=== PATIENT | female | born 1970 | race Two or more races ===

== ENCOUNTER → 2024-05-30 | Outpatient (CLI) | payer MEDICAID ==
[2024-05-30 07:05] LABS: Urine Bacteria None Seen /hpf (None Seen)
[2024-05-30 07:17] LABS: Basophils # (auto) 0.1 10 ^3/uL (0-0.2); Basophils % (auto) 1.5 % (0.0-2.0); Eosinophils # (auto) 0.4 10 ^3/uL (0-0.8); Eosinophils % (auto) 6.2 % (0.0-7.0); Hematocrit 42.2 % (36.0-46.0); Hemoglobin 13.9 g/dL (12.2-16.2); Lymphocytes % (auto) 33.1 % (10.0-50.0); Mean Corpuscular Hgb Conc. 32.9 g/dL (32.0-36.0); Monocytes # (auto) 0.5 10 ^3/uL (0-1.3); Monocytes % (auto) 8.9 % (0.0-12.0); Neutrophils # (auto) 3.1 10 ^3/uL (1.6-8.6); Neutrophils % (auto) 50.3 % (37.0-80.0); Nucleated Red Blood Cells % 0.1 %; Platelet Count (auto) 261 10^3/uL (140-450); Red Blood Cells 5.15 10^6/uL (4.0-5.20); Red Cell Distribution Width 15.3 % (11.8-14.3); White Blood Cell 6.1 10^3/uL (4.4-10.8)
[2024-05-30 07:37] LABS: Urine Blood Negative /uL (Negative); Urine Clarity Ex.Turbid (Clear); Urine Color Colorless (Yellow); Urine Protein, UAD Negative (Negative); Urine Specific Gravity 1.014 (1.001-1.035); Urine Urobilinogen Normal (Negative); Urine WBC 2 /hpf (0 - 5)
[2024-05-30 07:45] LABS: Alanine Aminotransferase 11 U/L (7-40); Albumin 4.3 g/dL (3.2-4.8); Alkaline Phosphatase 120 U/L (46-116); Anion Gap 4 (5-15); Aspartate Aminotransferase 10 U/L (13-40); BUN/Creatinine Ratio 13.2 (10.0-20.0); Bilirubin, Total 0.3 mg/dL (0.2-1.0); Blood Urea Nitrogen 10 mg/dL (9-23); Calcium 9.8 mg/dL (8.7-10.4); Carbon Dioxide 31 mmol/L (20-31); Chloride 109 mmol/L (98-107); Cholesterol 232 mg/dL (< 200); Glucose 87 mg/dL (74-106); HDL Cholesterol 49 mg/dL (40-59); LDL Cholesterol 171 mg/dL (< 100); Potassium 4.8 mmol/L (3.5-5.1); Sodium 144 mmol/L (136-145); Total Protein 7.1 g/dL (5.7-8.2); Triglycerides 134 mg/dL (< 150)
== END | disposition home or self-care (01) ==
LOC: LAB 06:51
PROVIDERS: ATTEND Licensed Practical Nurse
DX: Z13.21 Encounter for screening for nutritional disorder (principal); E78.5 Hyperlipidemia, unspecified; K92.1 Melena
CPT/HCPCS: 36415; 80053; 80061; 81001; 82270; 82306; 82607; 83036; 84443; 85025

== ENCOUNTER 2024-06-10 09:26 | Inpatient (IN) | payer MEDICAID ==
[~2024-06-10] VITALS: Ht 170.2 cm; Wt 98.6 kg
[~2024-06-10 09:26] MED LIST: ACET-6 PO; ATOR10TA PO; ERGO500086 PO; GABA-1250 PO; MELO15TA29 PO; NICO21DI37 TD; TIZA-142 PO
[2024-06-10] MEDS: SODIUM CHLORIDE 0.9% 1,000 ML IV ONE (10:00)
--- NOTE | 2024-06-10 10:06 | ED.PDOC ---
HPI Comments 54-year-old female brought in by EMS presents with a chief complaint of chest pain x onset this morning. Patient reports that chest pain started as a burning sensation in the center of her chest that now radiated to her neck. Patient mentions that she now feels nausea and now reports center "pressure". En route, patient was given Nitro x2, Aspirin 324mg, and Zofran 4mg IV. Patient reports some relief after the medication. Chief Complaint: Chest Pain Time Seen by MD: 09:59 Primary Care Provider: JERAMY Costa Notes: Medications, Allergies Allergies: Coded Allergies: NO KNOWN ALLERGIES (Unverified , 06/10/24) Information Source: Patient Mode of Arrival: EMS Severity: Moderate Timing: Hours Duration: Since onset Prehospital treatment: ASA, NTG, Treatment (Zofran 4mg IV) Location: Substernal Radiation: Neck Quality: Pressure Onset: At Rest Cardiac Risk Factors: Smoker, Hyperlipidemia PE Risk Factors: None History of: None Past Medical History PAST MEDICAL HISTORY: High Lipids Surgical History: Denies all surgeries CONSTRUCTION QUALITY CONTROL MANAGER History: Denies all CONSTRUCTION QUALITY CONTROL MANAGER Hx Family History Family History: Reviewed,noncontributory to illness Social History Smoker: Cigarettes Alcohol: Rarely Drugs: Denies Drug Use Lives In: Home Constitutional: denies: chills, diaphoresis, fatigue, fever, malaise, sweats, weakness, others EENTM: denies: blurred vision, double vision, ear bleeding, ear discharge, ear drainage, ear pain, ear ringing, eye pain, eye redness, hearing loss, mouth pain, mouth swelling, nasal discharge, nose bleeding, nose congestion, nose pain, photophobia, tearing, throat pain, throat swelling, voice changes, others Respiratory: denies: cough, hemoptysis, orthopnea, SOB at rest, shortness of breath, SOB with excertion, stridor, wheezing, others Cardiovascular: reports: chest pain; denies: dizzy spells, diaphoresis, Dyspnea on exertion, edema, irregular heart beat, left arm pain, lightheadedness, palpitations, PND, syncope, others Gastrointestinal: denies: abdomen distended, abdominal pain, blood streaked bowels, constipated, diarrhea, dysphagia, difficulty swallowing, hematemesis, melena, nausea, poor appetite, poor fluid intake, rectal bleeding, rectal pain, vomiting, others Genitourinary: denies: abnormal vagina bleeding, burning, dyspareunia, dysuria, flank pain, frequency, hematuria, incontinence, pain, , vagina discharge, urgency, others Neurological: denies: dizziness, fainting, headache, left sided numbness, left sided weakness, numbness, paresthesia, pre-existing deficit, right sided numbness, right sided weakness, seizure, speech problems, tingling, tremors, weakness, others Musculoskeletal: denies: back pain, gout, joint pain, joint swelling, muscle pain, muscle stiffness, neck pain, others Integumetry: denies: bruises, change in color, change in hair/nails, dryness, laceration, lesions, lumps, rash, wounds, others Allergic/Immunocompromised: denies: Difficulty Healing, Frequent Infections, Hives, Itching, others Hematologic/Lymphatic: denies: anemia, blood clots, easy bleeding, easy bruising, swollen glands, others Endocrine: denies: excessive hunger, excessive sweating, excessive thirst, excessive urination, flushing, intolerance to cold, intolerance to heat, unexplained weight gain, unexplained weight loss, others Psychiatric: denies: anxiety, bipolar disorder, depression, hopeless, panic disorder, schizophrenia, sleepless, suicidal, others All Other Systems: Reviewed and Negative Physical Exam General Appearance: No Apparent Distress, Normal HEENT: Normal ENT Inspection, Pharynx Normal, TMs Normal Neck: Full Range of Motion, Non-Tender, Normal, Normal Inspection Respiratory: Chest Non-Tender, Lungs Clear, No Accessory Muscle Use, No Respiratory Distress, Normal Breath Sounds Cardiovascular: No Edema, No JVD, No Murmur, No Gallop, Normal Peripheral Pulses, Regular Rate/Rhythm Breast Exam: Deferred Gastrointestinal: No Organomegaly, Non Tender, No Pulsatile Mass, Normal Bowel Sounds, Soft Genitalia: Deferred Pelvic: Deferred Rectal: Deferred Extremities: No calf tenderness, Normal capillary refill, Normal inspection, Normal range of motion, Non-tender, No pedal edema Musculoskeletal : Apperance: Normal Neurologic: Alert, java web 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 Was a procedure done?: No CP Differential Dx Differential Diagnosis: Angina, Anxiety / Panic Attack, Electrolyte Disorder, Heart Failure, Pulmonary Embolus, Renal Failure Differential Diagnosis: CHF, HTN Essential Differential Diagnosis: Angina, Esophageal reflux/spasm, Myocardial Infarction, Pneumonia, Pulmonary Embolus X-Ray, Labs, Meds, VS Vital Signs Date Time Temp Pulse Resp B/P (MAP) Pulse Ox O2 Delivery O2 Flow Rate FiO2 06/10/24 11:18 72 06/10/24 10:58 57 06/10/24 10:50 61 06/10/24 09:26 98.7 72 16 137/82 (100) 98 06/10/24 09:26 72 Lab Test 06/10/24 10:33 06/10/24 09:31 Range/Units Troponin I High Sensitivity 72 *H 14 </=34 ng/L White Blood Count 5.5 4.4-10.8 10^3/uL Red Blood Count 4.76 4.0-5.20 10^6/uL Hemoglobin 12.9 12.2-16.2 g/dL Hematocrit 38.8 36.0-46.0 % Mean Corpuscular Volume 81.4 80.0-100.0 fL Mean Corpuscular Hemoglobin 27.0 L 28.0-32.0 pg Mean Corpuscular Hemoglobin Concent 33.2 32.0-36.0 g/dL Red Cell Distribution Width 14.8 H 11.8-14.3 % Platelet Count 264 140-450 10^3/uL Mean Platelet Volume 9.0 6.9-10.8 fL Neutrophils (%) (Auto) 49.1 37.0-80.0 % Lymphocytes (%) (Auto) 33.6 10.0-50.0 % Monocytes (%) (Auto) 9.8 0.0-12.0 % Eosinophils (%) (Auto) 6.0 0.0-7.0 % Basophils (%) (Auto) 1.5 0.0-2.0 % Neutrophils # (Auto) 2.7 1.6-8.6 10 ^3/uL Lymphocytes # (Auto) 1.8 0.4-5.4 10 ^3/uL Monocytes # (Auto) 0.5 0-1.3 10 ^3/uL Eosinophils # (Auto) 0.3 0-0.8 10 ^3/uL Basophils # (Auto) 0.1 0-0.2 10 ^3/uL Nucleated Red Blood Cells 0.0 % Prothrombin Time 10.8 9.3-11.8 sec Prothrombin Time INR 1.02 0.9-1.15 Activated Partial Thromboplast Time 29.3 24.5-34.5 SEC D-Dimer, Quantitative 0.28 0.0-0.49 mg/L FEU Sodium Level 141 136-145 mmol/L Potassium Level 4.3 3.5-5.1 mmol/L Chloride Level 107 98-107 mmol/L Carbon Dioxide Level 30 20-31 mmol/L Anion Gap 4 L 5-15 Blood Urea Nitrogen 12 9-23 mg/dL Creatinine 0.80 0.550-1.02 mg/dL Glomerular Filtration Rate Calc 86 >90 mL/min BUN/Creatinine Ratio 15.0 10.0-20.0 Serum Glucose 89 74-106 mg/dL Calcium Level 9.9 8.7-10.4 mg/dL Magnesium Level 2.1 1.6-2.6 mg/dL Total Bilirubin 0.4 0.2-1.0 mg/dL Aspartate Amino Transferase (AST) 12 L 13-40 U/L Alanine Aminotransferase (ALT) 15 7-40 U/L Alkaline Phosphatase 130 H 46-116 U/L Total Protein 6.8 5.7-8.2 g/dL Albumin 4.2 3.2-4.8 g/dL Current Medications Medications (Trade) Dose Ordered Sig/Morris Route Start Time Stop Time Status Last Admin Sodium Chloride 1,000 ml @ 150 mls/hr Q6H40M ONCE IV 06/10/24 10:00 06/10/24 16:39 06/10/24 10:00 X-Ray, Labs, Meds, VS Comment Course in the emergency department eventful patient came in complaining of chest pain burning sensation radiating to his neck and nausea heart rate 72 pulse ox 98 blood pressure 137/82 Patient received two nitroglycerin is aspirin Zofran on route The chest x-ray shows pulmonary vascular congestion EKG shows normal sinus rhythm at 72 with left left atrial enlargement Troponin 14 CBC negative CMP normal Magnesium 2.1 INR 1.02 D-dimer 0.28 Urine pending Patient will be admitted for further care Time of 1ST Reevaluation: 10:29 Reevaluation 1ST: Unchanged Time of 2ND Reevaluation: 11:15 Reevaluation 2ND: Unchanged Patient Education/Counseling: Diagnosis, Treatment, Prognosis Family Education/Counseling: Diagnosis, Treatment, Prognosis, No Family Present Departure 1 Departure Time of Disposition: 11:14 Impression: Primary Impression: Chest pain Qualified Codes: I20.0 - Unstable angina Additional Impression: Pulmonary vascular congestion Ruled Out: Pulmonary embolism Disposition: ADMITTED INPATIENT Admit to: Tele Condition: Serious Critical Care Note Critical Care Time?: No Stability Stability form required: Yes Unstable for transfer: Telemetry monitoring (Telemetry monitoring required), Requires medication (Requires Med for stabilization) Heart Score Heart Score: Heart Score Response (Comments) Value History Moderate Suspicious 1 EKG Repolarization Disturb 1 Age 45-64 1 Risk Factors 1 or 2 risk factors 1 Troponin Normal limit 0 Total 4 I personally scribed for SELIVN WARNER MD ([email or web address]) on 06/10/24 at 10:06. Electronically submitted by Sidney Ramon ([email or web address]). SELVIN WARNER MD Jun 10, 2024 10:06
[2024-06-10 10:35] LABS: Alanine Aminotransferase 15 U/L (7-40); Albumin 4.2 g/dL (3.2-4.8); Alkaline Phosphatase 130 U/L (46-116); Anion Gap 4 (5-15); Aspartate Aminotransferase 12 U/L (13-40); Basophils # (auto) 0.1 10 ^3/uL (0-0.2); Basophils % (auto) 1.5 % (0.0-2.0); Bilirubin, Total 0.4 mg/dL (0.2-1.0); Blood Urea Nitrogen 12 mg/dL (9-23); Calcium 9.9 mg/dL (8.7-10.4); Carbon Dioxide 30 mmol/L (20-31); Chloride 107 mmol/L (98-107); Eosinophils # (auto) 0.3 10 ^3/uL (0-0.8); Glucose 89 mg/dL (74-106); Hematocrit 38.8 % (36.0-46.0); Hemoglobin 12.9 g/dL (12.2-16.2); Lymphocytes # (auto) 1.8 10 ^3/uL (0.4-5.4); Lymphocytes % (auto) 33.6 % (10.0-50.0); Magnesium 2.1 mg/dL (1.6-2.6); Mean Corpuscular Hgb Conc. 33.2 g/dL (32.0-36.0); Mean Corpuscular Volume 81.4 fL (80.0-100.0); Monocytes # (auto) 0.5 10 ^3/uL (0-1.3); Monocytes % (auto) 9.8 % (0.0-12.0); Neutrophils # (auto) 2.7 10 ^3/uL (1.6-8.6); Neutrophils % (auto) 49.1 % (37.0-80.0); Platelet Count (auto) 264 10^3/uL (140-450); Potassium 4.3 mmol/L (3.5-5.1); Red Blood Cells 4.76 10^6/uL (4.0-5.20); Red Cell Distribution Width 14.8 % (11.8-14.3); Sodium 141 mmol/L (136-145); Total Protein 6.8 g/dL (5.7-8.2); White Blood Cell 5.5 10^3/uL (4.4-10.8)
[2024-06-10 10:48] LABS: INR 1.02 (0.9-1.15); Partial Thromboplastin Time 29.3 SEC (24.5-34.5); Prothrombin Time 10.8 sec (9.3-11.8)
--- NOTE | 2024-06-10 10:48 | DVH ---
XY CHEST TWO VIEWS ROUTINE, HISTORY: cp COMPARISON: None None TECHNICAL DATA: 2 view of the chest was obtained. FINDINGS: Lines and tubes: None Cardiomediastinal silhouette: normal Pulmonary vasculature: prominent Lung expansion: normal Lung airspace: normal Lung interstitium: normal Pleura: normal Pneumothorax: no Bones: Unremarkable Other: no IMPRESSION: Mild pulmonary congestion.
[2024-06-10] MEDS: ONDANSETRON HCL 4 MG/2 ML VIAL IV ONE (11:38)
[2024-06-10] MEDS: MORPHINE SULFATE 4 MG/ML SYR/VIAL IV ONE (11:38)
[2024-06-10] MEDS ORDERED: ONDANSETRON HCL 4 MG/2 ML VIAL IV PRN (11:45)
[2024-06-10] MEDS ORDERED: HYDROcodone-ACET 5/325MG TAB PO PRN (11:45)
[2024-06-10] MEDS ORDERED: MORPHINE SULFATE INJ 2 MG/ml SYRG IV PRN (11:45)
--- NOTE | 2024-06-10 12:10 | DVHINCON2 ---
Date Seen: Jun 10, 2024 Referring Physician AARON Quinn Reason for Consultation Chest pain History of Present Illness A 54-year-old female patient who presents to the emergency room with chief complaint of chest pain. The patient reports that the pain began approximately 20 minutes prior to emergency room arrival. She describes it as initially a burning sensation in her throat, followed by pressure in her chest. She reports that it was provoked by drinking her coffee, pressure-like in nature, and substernal without radiation. Associated symptoms include diaphoresis. She denies any alleviating factors. Per report, EMS gave sublingual nitroglycerin 0.4 mg x 2 and aspirin 324 mg x 1. The patient reports minimal relief after medications. Initial twelve lead electrocardiogram reveals sinus bradycardia with PAC. Initial troponin level of 14ng/L with peak level at 247ng/L. Significant past medical history includes dyslipidemia, tobacco use, and obesity. 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 Past Medical History Past medical history reviewed. No other significant than mentioned above. Past Surgical History Denies all previous surgeries Family History Family history reviewed. Social History Patient has a 15 pack-year history, states that she quit smoking approximately eight days ago Patient denies any illicit drug use Patient denies any alcohol use Allergies: Coded Allergies: NO KNOWN ALLERGIES (Unverified , 06/10/24) Home Meds Patient reports taking pyxr-nqg-efumaux medications such as fish oil and turmeric Current Medications Current Medications Medications (Trade) Dose Ordered Sig/Morris Route PRN Reason Start Time Stop Time Status Last Admin Acetaminophen/ Hydrocodone Bitart ([place] 5/325MG Tab) 1 tab Q4HP PRN PO MODERATE PAIN (4-6 PAIN SCALE) 06/10/24 11:45 Ondansetron HCl (Zofran) 4 mg Q4HP PRN IV NAUSEA / VOMITING 06/10/24 11:45 Nitroglycerin (Ntrostat Sublingual) 0.4 mg Q5MINP PRN SL FOR CHEST PAIN 06/10/24 11:45 Morphine Sulfate 2 mg Q30M PRN IV FOR CHEST PAIN 06/10/24 11:45 Review of Systems Constitutional: No symptom reported Ears, Nose, & Throat: No symptom reported Eyes: No symptom reported Neurological: No symptoms reported Pulmonary/Respiratory: No symptoms reported Cardiovascular: Chest pain Gastrointestinal: No symptom reported Genitourinary: No symptom reported Musculoskeletal: No symptom reported Skin: No symptom reported Psychiatric: No symptom reported Endocrine: No symptom reported Hematologic/Lymphatic: No symptom reported Vital Signs Vital Signs Date Time Temp Pulse Resp B/P (MAP) Pulse Ox O2 Delivery O2 Flow Rate FiO2 06/10/24 11:38 72 14 127/81 06/10/24 10:00 Room Air* 0 21 06/10/24 09:50 98.0 98 98.0 Physical Exam General Appearance: Cooperative. Obese Pulmonary/Respiratory: Clear, bilateral breaths sounds. Cardiovascular/Chest: Regular rate and rhythm. Peripheral Pulses: 2+ Radial (R). 2+ Radial (L). 2+ Pedal (R). 2+ Pedal (L) Abdominal Exam: Normal bowel sounds. Ankle Exam: Negative ankle edema Lower extremities: Negative lower extremity edema Neuro/Mental Status: A/OX4, coherent. Thoughts/Psych: Normal thought pattern. Appropriate mood and affect. Good judgment and insight. Appearance: No acute distress. Skin Exam: Normal inspection. Normal color. Warm and dry. Labs/Diagnostic Data Labs Test 06/10/24 10:33 06/10/24 09:31 Range/Units Troponin I High Sensitivity 72 *H </=34 ng/L White Blood Count 5.5 4.4-10.8 10^3/uL Red Blood Count 4.76 4.0-5.20 10^6/uL Hemoglobin 12.9 12.2-16.2 g/dL Hematocrit 38.8 36.0-46.0 % Mean Corpuscular Volume 81.4 80.0-100.0 fL Mean Corpuscular Hemoglobin 27.0 L 28.0-32.0 pg Mean Corpuscular Hemoglobin Concent 33.2 32.0-36.0 g/dL Red Cell Distribution Width 14.8 H 11.8-14.3 % Platelet Count 264 140-450 10^3/uL Mean Platelet Volume 9.0 6.9-10.8 fL Neutrophils (%) (Auto) 49.1 37.0-80.0 % Lymphocytes (%) (Auto) 33.6 10.0-50.0 % Monocytes (%) (Auto) 9.8 0.0-12.0 % Eosinophils (%) (Auto) 6.0 0.0-7.0 % Basophils (%) (Auto) 1.5 0.0-2.0 % Neutrophils # (Auto) 2.7 1.6-8.6 10 ^3/uL Lymphocytes # (Auto) 1.8 0.4-5.4 10 ^3/uL Monocytes # (Auto) 0.5 0-1.3 10 ^3/uL Eosinophils # (Auto) 0.3 0-0.8 10 ^3/uL Basophils # (Auto) 0.1 0-0.2 10 ^3/uL Nucleated Red Blood Cells 0.0 % Prothrombin Time 10.8 9.3-11.8 sec Prothrombin Time INR 1.02 0.9-1.15 Activated Partial Thromboplast Time 29.3 24.5-34.5 SEC D-Dimer, Quantitative 0.28 0.0-0.49 mg/L FEU Sodium Level 141 136-145 mmol/L Potassium Level 4.3 3.5-5.1 mmol/L Chloride Level 107 98-107 mmol/L Carbon Dioxide Level 30 20-31 mmol/L Anion Gap 4 L 5-15 Blood Urea Nitrogen 12 9-23 mg/dL Creatinine 0.80 0.550-1.02 mg/dL Glomerular Filtration Rate Calc 86 >90 mL/min BUN/Creatinine Ratio 15.0 10.0-20.0 Serum Glucose 89 74-106 mg/dL Calcium Level 9.9 8.7-10.4 mg/dL Magnesium Level 2.1 1.6-2.6 mg/dL Total Bilirubin 0.4 0.2-1.0 mg/dL Aspartate Amino Transferase (AST) 12 L 13-40 U/L Alanine Aminotransferase (ALT) 15 7-40 U/L Alkaline Phosphatase 130 H 46-116 U/L Total Protein 6.8 5.7-8.2 g/dL Albumin 4.2 3.2-4.8 g/dL Assessment NSTEMI, rule out coronary artery disease Dyslipidemia Tobacco use Obesity Plan/Recommendation We will continue with following plan/recommendations (Dr. Crowell): * Echocardiogram reveals EF 55% * Chest pain protocol * HEART score: 4 points * ABRAHAM score: 2 points * Lipid-lowering agent * Cardiac surveillance * [facility] 06/11/24 Patient seen and examined at bedside with . Given the patient's clinical presentation, HEART score and up trending troponin level, the patient may benefit from a coronary angiogram with left heart catheterization. The procedure was discussed with the patient in full detail including risks and benefits. Risks include but are not limited to bleeding, contrast induced nephropathy, stroke, and even . The patient understands and is agreeable to undergo the procedure. We will schedule the patient at first availability on 06/11/2024. Thank you for allowing us to care for this patient. Please call with any questions or concerns. Critical care time spent: 48 minutes This medical document was created using an electronic medical record system with voice recognition software and computerized dictation system. Although this document has been carefully reviewed, there might still be some phonetic and typographical errors. Occasional wrong-word or ``sound-alike substitutions may have occurred due to the inherent limitations of voice recognition software. These areas are purely typographical due to imperfections of the software programs and do not reflect any compromise in the patient's medical care. Please read the chart carefully and recognize, using context, where these substitutions have occurred. Plan discussed with: Patient Date of Service: Jun 10, 2024 Billing Provider: TRUNG CROWELL MD Cardiology Common Codes: [id number] INP/OBS CARE (High) MARILOU DEVINE VISUAL ARTS TEACHER Jun 10, 2024 12:10
--- NOTE | 2024-06-10 12:18 | DVHHP2 ---
History of Present Illness Reason for Visit: Chest pain History of Present Illness 54-year-old female brought in by EMS presented with chief complaint of chest pain onset was this morning. Patient reports the chest pain started as a burning sensation in the center of her chest that radiated to her neck. Patient states once she got to the hospital then she started feeling nauseous and reported pressure in the center of her chest. Patient was given nitro x2, aspirin, Zofran IV and patient did report relief after the medication. At time of this assessment patient states she feels a little bit of pressure in the middle of her chest. Patient does report that she has hyperlipidemia and does not take prescribed medications for it, patient uses supplements instead. Patient denies headache, dizziness, diaphoresis, shortness of breath, abdominal pain, no vomiting, fever, or chills endorsed by the patient. Patient was admitted for further evaluation medical management. Past Medical History Hyperlipidemia Past Surgical History Denies all surgeries Family History Reviewed noncontributory to the management of this case Smoke: <1 pack per day (Patient quit 8 days ago, was smoking half a pack per day) ALCOHOL: rare Lives: with Family Review of Systems Constitutional: No: Fever, Chills, Sweats, Weakness, Malaise, Other Eyes: No: Pain, Vision change, Conjunctivae inflammation, Eyelid inflammation, Other, Redness ENT: No: Ear pain, Ear discharge, Nose pain, Nose discharge, Nose congestion, Mouth pain, Mouth swelling, Throat pain, Throat swelling, Other Respiratory: No: Cough, Dry, Shortness of breath, SOB with excertion, Wheezing, Hemoptysis, Pleuritic Pain, Sputum, Wheezing, Other Cardiovascular: Chest Pain (Slight pressure reported by patient, 2/10) Gastrointestinal: Nausea (Nausea and relieved by Zofran) Genitourinary: No Dysuria, No Frequency, No Incontinence, No Hematuria, No Retention, No Other Musculoskeletal: No: other, neck pain, shoulder pain, arm pain, back pain, hand pain, leg pain, foot pain Skin: No: Rash, Lesions, Jaundice, Bruising, Other Neurological: No: Weakness, Numbness, Incoordination, Change in speech, Confusion, Seizures, Other Allergies: Coded Allergies: NO KNOWN ALLERGIES (Unverified , 06/10/24) Medications Current Medications Medications Dose Ordered Sig/Morris Route Start Time Stop Time Status Last Admin Dose Admin Acetaminophen/ Hydrocodone Bitart 1 tab Q4HP PRN PO 06/10/24 11:45 Ondansetron HCl 4 mg Q4HP PRN IV 06/10/24 11:45 Nitroglycerin 0.4 mg Q5MINP PRN SL 06/10/24 11:45 Morphine Sulfate 2 mg Q30M PRN IV 06/10/24 11:45 Exam Vital Signs Vital Signs Date Time Temp Pulse Resp B/P (MAP) Pulse Ox O2 Delivery O2 Flow Rate FiO2 06/10/24 11:38 72 14 127/81 06/10/24 10:00 Room Air* 0 21 06/10/24 09:50 98.0 98 98.0 General Appearance: Alert, Oriented X3, Cooperative, No acute distress HEENT: Atraumatic, PERRLA, EOMI, Mucous membr. moist/pink Respiratory: Clear to auscultation, Normal air movement Cardiovascular: Regular rate, Normal S1, Normal S2, No murmurs Abdominal: Normal bowel sounds, Soft, No tenderness, No hepatospenomegaly, No masses Extremities: No clubbing, No cyanosis, No edema, Normal pulses, No tenderness/swelling Skin: No rashes, No breakdown, No significant lesion Neuro: Normal gait, Normal speech, Strength at 5/5 X4 ext, Normal tone, Sensation intact, Cranial nerves 3-12 NL Psych/Mental Status: Mental status NL, Mood NL Labs/Xrays Labs, imaging and ED notes reviewed Labs Test 06/10/24 10:33 06/10/24 09:31 Range/Units Troponin I High Sensitivity 72 *H </=34 ng/L White Blood Count 5.5 4.4-10.8 10^3/uL Red Blood Count 4.76 4.0-5.20 10^6/uL Hemoglobin 12.9 12.2-16.2 g/dL Hematocrit 38.8 36.0-46.0 % Mean Corpuscular Volume 81.4 80.0-100.0 fL Mean Corpuscular Hemoglobin 27.0 L 28.0-32.0 pg Mean Corpuscular Hemoglobin Concent 33.2 32.0-36.0 g/dL Red Cell Distribution Width 14.8 H 11.8-14.3 % Platelet Count 264 140-450 10^3/uL Mean Platelet Volume 9.0 6.9-10.8 fL Neutrophils (%) (Auto) 49.1 37.0-80.0 % Lymphocytes (%) (Auto) 33.6 10.0-50.0 % Monocytes (%) (Auto) 9.8 0.0-12.0 % Eosinophils (%) (Auto) 6.0 0.0-7.0 % Basophils (%) (Auto) 1.5 0.0-2.0 % Neutrophils # (Auto) 2.7 1.6-8.6 10 ^3/uL Lymphocytes # (Auto) 1.8 0.4-5.4 10 ^3/uL Monocytes # (Auto) 0.5 0-1.3 10 ^3/uL Eosinophils # (Auto) 0.3 0-0.8 10 ^3/uL Basophils # (Auto) 0.1 0-0.2 10 ^3/uL Nucleated Red Blood Cells 0.0 % Prothrombin Time 10.8 9.3-11.8 sec Prothrombin Time INR 1.02 0.9-1.15 Activated Partial Thromboplast Time 29.3 24.5-34.5 SEC D-Dimer, Quantitative 0.28 0.0-0.49 mg/L FEU Sodium Level 141 136-145 mmol/L Potassium Level 4.3 3.5-5.1 mmol/L Chloride Level 107 98-107 mmol/L Carbon Dioxide Level 30 20-31 mmol/L Anion Gap 4 L 5-15 Blood Urea Nitrogen 12 9-23 mg/dL Creatinine 0.80 0.550-1.02 mg/dL Glomerular Filtration Rate Calc 86 >90 mL/min BUN/Creatinine Ratio 15.0 10.0-20.0 Serum Glucose 89 74-106 mg/dL Calcium Level 9.9 8.7-10.4 mg/dL Magnesium Level 2.1 1.6-2.6 mg/dL Total Bilirubin 0.4 0.2-1.0 mg/dL Aspartate Amino Transferase (AST) 12 L 13-40 U/L Alanine Aminotransferase (ALT) 15 7-40 U/L Alkaline Phosphatase 130 H 46-116 U/L Total Protein 6.8 5.7-8.2 g/dL Albumin 4.2 3.2-4.8 g/dL Assessment/Plan Assessment/Plan Chest pain/NSTEMI Admit to telemetry EKG showing sinus rhythm/sinus len ACS protocol Consult cardiology BNP ordered Chest x-ray shows mild pulmonary congestion Serial troponins: 14, 72, 3rd troponin pending Chronic hyperlipidemia Patient had recent hyperlipidemia workup Patient was prescribed atorvastatin, however patient declined to take medication Nicotine dependence Patient states she quit 8 days ago Patient declined nicotine patch FEN/PPX Cardiac diet GI and VTE prophylaxis not indicated Plan discussed with: Patient My Orders Orders - MIKEY URIARTE Procedure Category Date Status Time * Cardiology Consult CONS 06/10/24 Transmitted 11:24 Admit ADMIT 06/10/24 Transmitted 11:40 Code Status CODE 06/10/24 Transmitted 11:40 Vital Signs KIMMY 06/10/24 In Process 11:40 Review Orders With [facility] 06/10/24 In Process Adm. 11:40 Up Ad Thao KIMMY 06/10/24 In Process 11:40 Notify Md Of Changes [facility] 06/10/24 In Process From Base 11:40 Advance Directive [facility] 06/10/24 In Process 11:40 Basic Metabolic Panel LAB 06/11/24 Verified 04:00 Complete Blood Count LAB 06/11/24 Verified 04:00 Patient Condition ORDERS 06/10/24 Transmitted 11:40 Allergies KIMMY 06/10/24 In Process 11:40 Hydrocodone-Acet PHA 06/10/24 In Process 5/325mg Tab ([place] 11:45 Ondansetron Hcl PHA 06/10/24 In Process (Zofran) 11:45 Cardiac DIET 06/10/24 Transmitted Diet-2gna,Lofat,Lochol Lunch Nitroglycerin PHA 06/10/24 In Process Sublingual (Ntrostat 11:45 Morphine Sulfate PHA 06/10/24 In Process Injection 11:45 Stat Ekg For Chest [facility] 06/10/24 In Process Pain 11:40 Notify Md Of Changes [facility] 06/10/24 In Process From Base 11:40 Public Works Manager For [facility] 06/10/24 In Process 24 Hours 11:40 Emergency Dysrhythmia KIMMY 06/10/24 In Process Protocol 11:40 Rhythm Strips Once [facility] 06/10/24 In Process Every Shift 11:40 Oxygen By Nasal RT 06/10/24 Transmitted Cannula 11:40 B-Type Natriuretic LAB 06/10/24 In Process Peptide 11:59 Date of Service: Jun 10, 2024 Billing Provider: MIKEY URIARTE Common Visit Codes: [id number] INP/OBS CARE (HIGH) MIKEY URIARTE [facility] Jun 10, 2024 12:18
[2024-06-10 12:37] LABS: Triglycerides 112 mg/dL (< 150)
[2024-06-10 12:38] LABS: LDL Cholesterol 197 mg/dL (< 100)
[2024-06-10 12:39] LABS: Cholesterol 258 mg/dL (< 200); HDL Cholesterol 46 mg/dL (40-59)
--- NOTE | 2024-06-10 16:52 | DVHSR ---
APPROVED REPORT EXAM: Two-dimensional and M-mode echocardiogram with Doppler and color Doppler. Blood Pressure: 136/79 mmHg INDICATION Eval for cardiac function RISK FACTORS Height: 70, Weight: 200 DIMENSIONS LVDd (3.8-5.7cm)LA (2D)3.5 (1.9-4.0cm)Aortic Root2.9 (2.0-3.7cm) LVDs (2.5-4.0cm)LA (MM) (1.9-4.0cm)Aortic Cusp Exc1.8 (1.5-2.0cm) EF (%) 60.0 (55-70%)Rt. Atrium3.7 (1.9-4.0cm)Asc. Aorta cm Mitral Valve MitralMitral Stenosis E wave0.82m/sMV Mean GR.mmHg A wave0.81m/sMV Peak GR.79mmHg E/A ratio1.02D MVAcm2 DECEL [id number] 1/2 [id number] IVRTmsDop MVA2.66cm2 Aortic Valve Aortic ValveAortic Stenosis V10.93m/Alondra Mean GR.3mmHg V21.20m/Alondra Peak GR.6mmHg LVOT Diameter1.9 (1.8-2.4cm)Doppler AVA2.20cm2 Pulmonic Valve V20.82m/s Tricuspid Valve TR Velocity2.37m/s [id number] Other Information Technically limited study due to body habitus. Conclusion Normal left ventricular size and dimension. Normal left ventricular systolic function estimated ejec tion fraction 55%. There is a grade 1 diastolic dysfunction. Normal right ventricular size and dimension. Normal right ventricular systolic function. Normal biatrial size and dimension. Normal aortic valve structure and function. Normal mitral valve structure and function. Normal tricuspid valve structure and function. The pulmonary valve is grossly normal No pericardial effusion.
[2024-06-10 18:47] VITALS: BP 117/54; PULSE 58; RESP 16; TEMP 97.4; O2SAT 94
[2024-06-10] MEDS: NITROGLYCERIN 0.4 MG SL TAB SL PRN (19:07)
--- NOTE | 2024-06-10 19:13 | ECG ---
[facility] Test Date: 2024-06-10 Test Time: 09:26:15 Pat Name: RUFINA VALLE Department: ER Room: 0217T A Gender: F Manager Animation: ILIA : 1970 Requested By: SELVIN WARNER Order Number: [id number] Reading MD: Damaso Ponce Measurements Intervals [place] Rate: 72 P: 91 [place]: 154 QRS: 48 QRSD: 86 T: 37 QT: 392 QTc: 430 Interpretive Statements Sinus rhythm Probable left atrial enlargement RSR' in V1 or V2, right VCD or RVH Electronically Signed On 06-13-2024 11:15:59 PST by Damaso Ponce Please click the below link to view image of tracing.
--- NOTE | 2024-06-10 19:13 | ECG ---
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
[2024-06-10 20:00] VITALS: PULSE 69
[2024-06-10 21:00] VITALS: BP 105/64; PULSE 60; RESP 19; TEMP 97.6; O2SAT 91
[2024-06-10] MEDS: ATORVASTATIN 20 MG TAB PO SCH (21:05)
[2024-06-11] VITALS (12 sets, daily range): BP systolic 100–127; BP diastolic 54–85; PULSE 54–71; RESP 11–19; TEMP 97.5–98.1; O2SAT 96–100
[2024-06-11 07:21] LABS: Basophils # (auto) 0.1 10 ^3/uL (0-0.2); Eosinophils # (auto) 0.4 10 ^3/uL (0-0.8); Lymphocytes # (auto) 1.9 10 ^3/uL (0.4-5.4); Mean Corpuscular Volume 82.2 fL (80.0-100.0); Monocytes # (auto) 0.6 10 ^3/uL (0-1.3); Nucleated Red Blood Cells % 0.1 %; Platelet Count (auto) 249 10^3/uL (140-450); White Blood Cell 6.1 10^3/uL (4.4-10.8)
[2024-06-11 07:23] LABS: Basophils % (auto) 1.7 % (0.0-2.0); Eosinophils % (auto) 6.9 % (0.0-7.0); Hematocrit 37.6 % (36.0-46.0); Hemoglobin 12.3 g/dL (12.2-16.2); Lymphocytes % (auto) 31.6 % (10.0-50.0); Mean Corpuscular Hgb Conc. 32.8 g/dL (32.0-36.0); Monocytes % (auto) 9.9 % (0.0-12.0); Neutrophils % (auto) 49.9 % (37.0-80.0); Red Blood Cells 4.57 10^6/uL (4.0-5.20)
[2024-06-11 07:25] LABS: Calcium 9.4 mg/dL (8.7-10.4); Chloride 108 mmol/L (98-107); Potassium 4.6 mmol/L (3.5-5.1); Sodium 143 mmol/L (136-145)
[2024-06-11 07:26] LABS: Anion Gap 5 (5-15); Carbon Dioxide 30 mmol/L (20-31)
[2024-06-11 07:31] LABS: BUN/Creatinine Ratio 13.5 (10.0-20.0); Blood Urea Nitrogen 10 mg/dL (9-23); Glucose 79 mg/dL (74-106)
[2024-06-11] MEDS: IODIXANOL 320MG/ML 100ML BTL IV ONE ×2 (09:47→11:04)
[2024-06-11] MEDS: LIDOCAINE 2%HCL (LOCAL ANESTH.) INJ 20ML MDV ONE (09:50)
[2024-06-11] MEDS: VERAPAMIL 2.5MG/ML INJ 2ML VIAL IV ONE (10:02)
[2024-06-11] MEDS: NITROGLYCERIN 50MG/250ML 250 ML IV ONE (10:02)
[2024-06-11] MEDS: ANGIOMAX 250 MG VIAL IV ONE (10:26)
[2024-06-11] MEDS: fentaNYL CITRATE 100 MCG/2 ML VL ONE ×2 (10:27→11:04)
[2024-06-11] MEDS: MIDAZOLAM HCL 2MG/2ML 2ml VIAL (1mg/ml) ONE ×2 (10:27→11:04)
[2024-06-11] MEDS: HEPARIN SODIUM (PORCINE) 5000 UNITS/ML 1ML VIAL ONE (10:27)
[2024-06-11] MEDS: SODIUM CHL 0.9% 50 ML ONE (10:27)
[2024-06-11] MEDS: ATROPINE SULF 1 MG/10ml SYR ONE (11:04)
[2024-06-11] MEDS: ASPirin 325 MG TAB ONE (11:05)
--- NOTE | 2024-06-11 11:05 | DVHOP2 ---
Operative Report -Cardiology Report Details Date: 06/11/24 Preop Diagnosis: Non ST-elevation myocardial infarction. Postop Diagnosis: Patient has chronic valve new occluded right coronary artery there has good collateral from the left system. She has also a tight stenosis of the proximal to mid LAD which was fixed with a single drug-eluting stents. At fentanyl PTCA to the up INTELLIGENCE CLERK of right coronary artery has failed. We will recommend aggressive medical therapy for now Surgeon: Erin Colindres MD Anesthesiologist: Conscious sedation using 25 mcg of fentanyl as well as a mg of midazolam. Was given under the direct supervision of myself primary chief specialist leed. As well as the attending nurses. Patient has no complication during the procedure with the time she was monitored which is a total of 35 minutes. Anesthesia: Local Consent: The patient was informed of the risks and benefits of the procedure. These include but are not limited to complications of anesthesia, postoperative infection, incomplete relief of symptoms, recurrence of symptoms, damage to blood vessels, nerves and tendons, deep venous thrombosis, pulmonary embolism and possible need for repeat surgery in the future. Indications for Surgery: A 54-year-old female patient who presents to the emergency room with chief complaint of chest pain. The patient reports that the pain began approximately 20 minutes prior to emergency room arrival. She describes it as initially a burning sensation in her throat, followed by pressure in her chest. She reports that it was provoked by drinking her coffee, pressure-like in nature, and substernal without radiation. Associated symptoms include diaphoresis. She denies any alleviating factors. Per report, EMS gave sublingual nitroglycerin 0.4 mg x 2 and aspirin 324 mg x 1. The patient reports minimal relief after medications. Initial twelve lead electrocardiogram reveals sinus bradycardia with PAC. Initial troponin level of 14ng/L with peak level at 247ng/L. Significant past medical history includes dyslipidemia, tobacco use, and obesity. The patient denies any previous cardiac workup for following a chief specialist leed in the outpatient setting. Name of Procedure Performed 1. Left heart catheterization with left ventricular end-diastolic pressure measurement. 2. Selective right and left coronary angiography utilizing right transradial approach. 3. Conscious sedation using 25 mcg of fentanyl as well as a mg midazolam. 4. Primarily posterolateral to proximal LAD tight stenosis with single drug- eluting stent. 5. Attempted PTCA to chronic total occlusion of mid LAD has failed. A as right coronary artery is receiving good collateral from the left system. Procedure w as omitted Procedure Details Procedure Details: After informed consent was obtained, risks, benefits, complications, and alternatives were discussed in details with the patient who agrees to have the procedure done. At the beginning of the procedure, the right wrist and right coronary area were prepped and draped in regular sterile fashion. Followed which a total of 2 cc of 1% xylocaine was given for anesthesia before a six Bolivian sheath was placed using modified Seldinger technique without difficulty. A cocktail of 2.5 mg of verapamil as well as 100 mcg of nitroglycerin were given intra-arterial to prevent vasospasm at the beginning of the procedure. Patient also received a total of 3000 heparin once the wire crosses the aortic arch. Dawson five Bolivian catheter as well as a Ngozi right guiding catheter was used and finally an XB 3-0 guiding catheter was used to engage the left system respectively. Findings were as follows: 1. Left heart catheterization with left ventricular end-diastolic pressure measurement: With the help of a tiger five Bolivian catheter as well as a J-tip wire we were able to cross the aortic valve and measured left ventricular end-diastolic pressure which was twelve mm of mercury. There was no gradient across the aortic valve on the pullback. 2. Selective right and left coronary angiography utilizing right transradial approach: 1. The right coronary artery comes off the right coronary cusp, it is a large dominant system it has a tandem lesion at 60 70% of the proximal part of the right coronary vessel. However at the mid segment there is complete occlusion of the right coronary proper after the takeoff of large acute marginal branch. With the auto collateral from the left system in the distal part of the posterior descending artery and the posterolateral branch of the right coronary artery when injecting the left system. 2. Left main comes off the left coronary cusp, it is a large vessels and has no significant atherosclerotic plaquing. It bifurcates into a large left anterior descending artery as well as a medium-sized left circumflex vessel. 3. The left anterior descending artery it is large gives rise to two diagonal branches. Of the proximal to mid segment there is tight focal stenosis and 99%. The LAD has mild irregularity of the distal part it gives collateral to the right coronary system. 4. The left circumflex artery is medium-sized vessel gives rise to two obtuse marginal branches. Has mild moderate disease involving the bifurcating lesion at 40-50%. 3. Attempted PTCA to chronically occluded right coronary artery: The tiger five Bolivian catheter was exchanged for a Ngozi right guiding catheter with side hole, attempted PTCA using C-arm blue wire consult vest critical chronic occluded segment of the mid part of the right coronary artery for which the procedure was omitted. 4. Successful PTCA with single drug-eluting stent to the proximal to mid LAD focal stenosis and 90% using three 0 x 22 reba [place] drug-eluting stent: A Ngozi right guiding catheter was exchanged for an XB three 0 guiding catheter, this was able to engage the left main system without difficulty. C- arm blue wire is used to engage the lesion and was able to traverse through the lesion without difficulty., then the lesion was pre-dilated using 2 x 12 balloon and then stented using three 0 by 22 single drug-eluting stent it was reba [place] DESIRAE without difficulty. It was inflated to 18 atmospheric pressure with excellent final result no obvious complication was seen. 5. Antiplatelet and anticoagulation therapy: Patient received loading dose of the 100 mg of Plavix orally, she received continuous infusion of bivalirudin intravenously during the procedure. Impression and plan: 1. Successful PCI to focal stenosis of the proximal LAD using single drug- eluting stent. 2. Attempted PTCA to chronically occluded mid right coronary artery was failed. Due to good collateral from the left system the procedure was omitted. 3. Borderline elevated left ventricular end-diastolic pressure indicating underlying diastolic heart failure. For which we will recommend aggressive medical therapy. 4. Patient will qualify for dual antiplatelet therapy for minimum of 12 months, she would need aggressive medical therapy with a high-dose statin to achieve target LDL of less than 50 mg/dL. 5. Patient would need to have an echocardiogram to assess left ventricular systolic function and proceed with goal-directed therapy as indicated. 6. Patient would need appropriate follow-up with a chief specialist leed after she is discharged, she might need to be discharged on nitroglycerin antianginal therapy given chronically occluded right coronary artery. Condition Good [facility] Clinical Frailty Scale [facility] Clinical Frailty Scale: Mildly Frail Stress Test Stress Test Performed: No Dominance Dominance: Right ABRAHAM ABRAHAM Flow: Post- Intervention (ABRAHAM-3), Pre-Intervention (ABRAHAM-2) Lesion Lesion Complexity: High/C Residual Stenosis post procedu: 0% Disposition ERIN COLINDRES MD Jun 11, 2024 11:05
[2024-06-11] MEDS: CLOPIDOGREL BISULFATE 75 MG TAB ONE (11:06)
--- NOTE | 2024-06-11 13:18 | ECG ---
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
--- NOTE | 2024-06-11 15:11 | DVHPN2 ---
Subjective 54-year-old female smoker admitted for chest pain, received left heart catheterization, found to have chronically occluded RCA and proximal LAD stenosis status post PCI. Patient is seen by me today during rounds Patient was an ex-smoker, quit 1 week ago, have nicotine replacement therapy at home, 30 year smoker with half pack per day, denies alcohol, marijuana. 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 Reviewed: Care Plan, H&P, Labs, Medications, Previous Orders, Radiology Changes from previous H/P or p: No Changes Eyes: No Pain, No Vision change, No Conjunctivae inflammation, No Eyelid inflammation, No Other, No Redness ENT: No Ear pain, No Ear discharge, No Nose pain, No Nose discharge, No Nose congestion, No Mouth pain, No Mouth swelling, No Throat pain, No Throat swelling, No Other Cardiovascular: Chest Pain (Slight pressure reported by patient, 2/10) Respiratory: No Cough, No Dry, No Shortness of breath, No SOB with excertion, No Wheezing, No Hemoptysis, No Pleuritic Pain, No Sputum, No Other Gastrointestinal: Nausea (Nausea and relieved by Zofran) Genitourinary: No Dysuria, No Frequency, No Incontinence, No Hematuria, No Retention, No Other Musculoskeletal: No other, No neck pain, No shoulder pain, No arm pain, No back pain, No hand pain, No leg pain, No foot pain Skin: No Rash, No Lesions, No Jaundice, No Bruising, No Other Objective Vitals Vital Signs Date Time Temp Pulse Resp B/P (MAP) Pulse Ox O2 Delivery O2 Flow Rate FiO2 06/11/24 11:56 57 11 126/83 (97) 99 06/11/24 10:56 97.5 97.5 06/10/24 19:40 Room Air* 0 21 Intake/Output Intake and Output 06/11/24 07:00 Intake Total 100 ml Balance 100 ml Intake Oral 100 ml # Voids 1 Exam Alert, oriented x3 PERRLA No JVD Clear breath sounds bilaterally S1-S2 regular rate and rhythm, loud P2, soft systolic murmur Abdomen soft nontender, no hepatomegaly Equal strength bilaterally on upper and lower extremities Decreased ROM on right hip No lower extremity edema Medications Current Medications Medications Dose Ordered Sig/Morris Route Start Time Stop Time Status Last Admin Dose Admin Acetaminophen/ Hydrocodone Bitart 1 tab Q4HP PRN PO 06/10/24 11:45 Ondansetron HCl 4 mg Q4HP PRN IV 06/10/24 11:45 Nitroglycerin 0.4 mg Q5MINP PRN SL 06/10/24 11:45 06/10/24 19:07 0.4 MG Morphine Sulfate 2 mg Q30M PRN IV 06/10/24 11:45 Atorvastatin Calcium 40 mg HS PO 06/10/24 22:00 Aspirin 81 mg DAILY PO 06/12/24 10:00 Clopidogrel Bisulfate 75 mg DAILY PO 06/12/24 10:00 Laboratory Results Laboratory Tests 06/11/24 05:17 Chemistry Test 06/11/24 05:17 Calcium Level 9.4 mg/dL (8.7-10.4) Labs and/or images reviewed: Labs reviewed by me, Image(s) reviewed by me Assessment/Plan Assessment/Plan Acute NSTEMI Status post PCI on prox LAD Chronically occluded RCA not revascularized Smoker and recent liquid Slow transit constipation Insomnia Hyperlipidemia Sciatica Possible right hip osteoarthritis Cardiac consult appreciated Continue with aspirin and Plavix given education the patient will need to take that for 12 months echo with grade 1 diastolic dysfunction Offered nicotine replacement therapy, patient has said that she had at home and currently not needing it Start senna and MiraLax Melatonin to sleep High-intensity statin, patient likely will benefit for Zetia at some point Gabapentin 300 t.i.d. PT consult Diet heart healthy DVT prophylaxis Lovenox Plan discussed with: Patient Date of Service: Jun 11, 2024 Billing Provider: CATHLEEN LYNCH MD Common Visit Codes: [id number] INP/OBS CARE(HIGH) CATHLEEN LYNCH MD Jun 11, 2024 15:11
[2024-06-11] MEDS: SENNA 8.6 MG TAB PO ONE (15:59)
[2024-06-11] MEDS: POLYETHYLENE GLYCOL 17 GM PWDR PO ONE (15:59)
--- NOTE | 2024-06-11 16:31 | DVHPN2 ---
Consult Progress Note Subjective Patient reports: Feels better Objective vital signs Vital Sign Date Time Temp Pulse Resp B/P (MAP) Pulse Ox O2 Delivery O2 Flow Rate FiO2 06/11/24 11:56 57 11 126/83 (97) 99 06/11/24 10:56 97.5 97.5 06/10/24 19:40 Room Air* 0 21 Total Intake and Output 06/10/24 06/10/24 06/11/24 15:00 23:00 07:00 Intake Total 100 ml Balance 100 ml medications Current Medications Medications Dose Ordered Sig/Morris Route Start Time Stop Time Status Last Admin Dose Admin Nitroglycerin 0.4 mg Q5MINP PRN SL 06/10/24 11:45 06/10/24 19:07 0.4 MG Morphine Sulfate 2 mg Q30M PRN IV 06/10/24 11:45 Atorvastatin Calcium 40 mg HS PO 06/10/24 22:00 Aspirin 81 mg DAILY PO 06/12/24 10:00 Clopidogrel Bisulfate 75 mg DAILY PO 06/12/24 10:00 Melatonin 5 mg HS PO 06/11/24 22:00 Sennosides 17.2 mg HS PO 06/11/24 22:00 Polyethylene Glycol 17 gm DAILY PO 06/12/24 10:00 Examination: GENERAL:Normal, LUNGS:Normal, CVS:Normal, NEURO:Normal laboratory and microbiology Laboratory Tests 06/11/24 05:17 Test 06/11/24 05:17 Range/Units Serum Glucose 79 74-106 mg/dL Problem List/Assessment/Plan Problem List/Assessment/Plan Coronary artery disease status post PTCA x1 DESIRAE Dyslipidemia Tobacco use Obesity Plan/Recommendations (Dr. Crowell): Transthoracic echocardiogram reveals EF 55%. The patient underwent coronary angiogram with left heart catheterization in which a successful PCI to the proximal LAD using a single drug-eluting stent was placed. The patient is also noted to have a chronically occluded mid right coronary artery in which PCI failed. We will recommend for the patient to continue dual antiplatelet therapy, beta-екатерина, low-dose ERLINDA inhibitor, and aggressive statin therapy. Consider nitroglycerin or antianginal therapy for chronically occluded RCA prior to discharge. There is no further inpatient cardiac workup indicated at this time. The patient should follow up with Cardiology in the outpatient setting in 1-2 weeks post discharge. Thank you for allowing us to care for this patient. Please call with any questions or concerns. This medical document was created using an electronic medical record system with voice recognition software and computerized dictation system. Although this document has been carefully reviewed, there might still be some phonetic and typographical errors. Occasional wrong-word or ``sound-alike substitutions may have occurred due to the inherent limitations of voice recognition software. These areas are purely typographical due to imperfections of the software programs and do not reflect any compromise in the patient's medical care. Please read the chart carefully and recognize, using context, where these substitutions have occurred. Plan discussed with: Patient Date of Service: Jun 11, 2024 Billing Provider: TRUNG CROWELL MD Common Visit Codes: [id number] INP/OBS CARE(HIGH) MARILOU DEVINE [facility] Jun 11, 2024 16:31
[2024-06-11] MEDS: SENNA 8.6 MG TAB PO SCH (22:16)
[2024-06-11] MEDS: MELATONIN 5 MG TAB PO SCH (22:16)
[2024-06-12 01:00] VITALS: BP 104/54; PULSE 62; RESP 18; TEMP 98.1; O2SAT 99
[2024-06-12 05:00] VITALS: BP 107/55; PULSE 58; RESP 18; TEMP 98.1; O2SAT 97
[2024-06-12] MEDS: ONDANSETRON HCL 4 MG/2 ML VIAL IV PRN (06:34)
[2024-06-12] MEDS: HYDROcodone-ACET 5/325MG TAB PO ONE (06:35)
[2024-06-12 07:06] LABS: Basophils # (auto) 0.1 10 ^3/uL (0-0.2); Eosinophils # (auto) 0.4 10 ^3/uL (0-0.8); Lymphocytes # (auto) 1.9 10 ^3/uL (0.4-5.4); Monocytes # (auto) 0.7 10 ^3/uL (0-1.3)
[2024-06-12 07:09] LABS: Basophils % (auto) 1.1 % (0.0-2.0); Eosinophils % (auto) 4.9 % (0.0-7.0); Hematocrit 38.3 % (36.0-46.0); Hemoglobin 12.6 g/dL (12.2-16.2); Lymphocytes % (auto) 25.2 % (10.0-50.0); Mean Corpuscular Hemoglobin 26.9 pg (28.0-32.0); Mean Corpuscular Volume 81.7 fL (80.0-100.0); Monocytes % (auto) 9.7 % (0.0-12.0); Neutrophils # (auto) 4.4 10 ^3/uL (1.6-8.6); Neutrophils % (auto) 59.1 % (37.0-80.0); Platelet Count (auto) 263 10^3/uL (140-450); Red Blood Cells 4.69 10^6/uL (4.0-5.20); Red Cell Distribution Width 15.4 % (11.8-14.3); White Blood Cell 7.4 10^3/uL (4.4-10.8)
[2024-06-12 07:16] LABS: Calcium 9.4 mg/dL (8.7-10.4); Chloride 108 mmol/L (98-107); Potassium 4.6 mmol/L (3.5-5.1); Sodium 141 mmol/L (136-145)
[2024-06-12 07:17] LABS: Anion Gap 2 (5-15); Carbon Dioxide 31 mmol/L (20-31)
[2024-06-12 07:22] LABS: BUN/Creatinine Ratio 12.7 (10.0-20.0); Blood Urea Nitrogen 9 mg/dL (9-23); Glucose 87 mg/dL (74-106)
[2024-06-12 07:23] LABS: Magnesium 2.2 mg/dL (1.6-2.6)
[2024-06-12 07:24] LABS: Phosphorus 3.3 mg/dL (2.4-5.1)
[2024-06-12 08:00] VITALS: PULSE 61
[2024-06-12 09:29] VITALS: BP 114/55; PULSE 58; RESP 18; TEMP 98.3; O2SAT 98
[2024-06-12 09:29] LABS: Urine Bacteria None Seen /hpf (None Seen)
[2024-06-12 09:44] LABS: Urine Blood Negative /uL (Negative); Urine Clarity Clear (Clear); Urine Color Light-Yellow (Yellow); Urine Protein, UAD Negative (Negative); Urine Specific Gravity 1.016 (1.001-1.035); Urine Urobilinogen Normal (Negative); Urine WBC 1 /hpf (0 - 5); Urine pH 6.5 (5.0-9.0)
[2024-06-12] MEDS: ASPirin 81 mg TAB PO SCH (09:53)
[2024-06-12] MEDS: CLOPIDOGREL BISULFATE 75 MG TAB PO SCH (09:53)
[2024-06-12] MEDS: LISINOPRIL 5 MG TAB PO SCH (10:00)
[2024-06-12] MEDS: METOPROLOL SUCCINATE XL 50 MG TAB PO SCH (10:00)
[2024-06-12] MEDS: ISOSORBIDE MONONITRATE 20 MG TAB PO SCH (10:01)
[2024-06-12] MEDS: POLYETHYLENE GLYCOL 17 GM PWDR PO SCH (10:02)
[2024-06-12] MEDS: PANTOPRAZOLE 40 MG TAB PO ONE (10:05)
[2024-06-12 10:12] LABS: Amphetamine Screen, Urine Neg (NEGATIVE); Barbiturate Scree,Urine Neg (NEGATIVE); Benzodiazephine Screen, Urine Pos (NEGATIVE); Cocaine Screen, Urine Neg (NEGATIVE); Opiate Scree,Urine Neg (NEGATIVE)
[2024-06-12 10:13] LABS: Cannabinoid Screen, Urine Neg (NEGATIVE); Phencyclidine Screen, Urine Neg (NEGATIVE)
[2024-06-12] MEDS: LACTULOSE 20Gm/30ML SOLN PO ONE (12:38)
[2024-06-12 13:10] VITALS: BP 87/55; PULSE 58; RESP 16; TEMP 98.3; O2SAT 98
[2024-06-12] MEDS ORDERED: METO-6 PO ×2 (14:29→14:33)
[2024-06-12] MEDS ORDERED: LISI-275 PO ×2 (14:29→14:33)
[2024-06-12] MEDS ORDERED: ATOR20TA50 PO ×2 (14:29→14:33)
[2024-06-12] MEDS ORDERED: ALUMSUS16 PO ×2 (14:29→14:33)
[2024-06-12] MEDS ORDERED: PANT40T PO (14:29)
[2024-06-12] MEDS ORDERED: CLOP75TA70 PO ×2 (14:29→14:33)
[2024-06-12] MEDS ORDERED: MELA5TAB16 PO ×2 (14:29→14:33)
[2024-06-12] MEDS ORDERED: POLY335015 PO ×2 (14:29→14:33)
[2024-06-12] MEDS ORDERED: ISO20T PO ×2 (14:29→14:33)
[2024-06-12] MEDS ORDERED: ASPI-325 PO ×2 (14:29→14:33)
--- NOTE | 2024-06-12 14:38 | DVHDS2 ---
Discharge Summary Date of Admission Jun 10, 2024 at 11:40 Date of Discharge: Jun 12, 2024 Labs/Diagnostic Data: Laboratory Results Test 06/12/24 09:02 06/12/24 06:17 06/10/24 12:32 06/10/24 09:31 Urine Color Light-yellow (Yellow) Urine Clarity Clear (Clear) Urine pH 6.5 (5.0-9.0) Urine Specific [place] 1.016 (1.001-1.035) Urine Protein Negative (Negative) Urine Ketones Negative (Negative) Urine Blood Negative /uL (Negative) Urine Nitrite Negative (Negative) Urine Bilirubin Negative (Negative) Urine Urobilinogen Normal mg/dL (Negative) Urine Leukocyte Esterase Negative /uL (Negative) Urine RBC 1 /hpf (0 - 4) Urine WBC 1 /hpf (0 - 5) Urine Squamous Epithelial Cells Few /hpf (<5) Urine Bacteria None seen /hpf (None Seen) Urine Glucose Normal mg/dL (Normal) Urine Opiates Screen Neg (NEGATIVE) Urine Fentanyl Screen Neg (NEGATIVE) Urine Barbiturates Screen Neg (NEGATIVE) Urine Phencyclidine Screen Neg (NEGATIVE) Urine Amphetamines Screen Neg (NEGATIVE) Urine Benzodiazepines Screen Pos (NEGATIVE) Urine Cocaine Screen Neg (NEGATIVE) Urine Cannabinoids Screen Neg (NEGATIVE) White Blood Count 7.4 10^3/uL (4.4-10.8) Red Blood Count 4.69 10^6/uL (4.0-5.20) Hemoglobin 12.6 g/dL (12.2-16.2) Hematocrit 38.3 % (36.0-46.0) Mean Corpuscular Volume 81.7 fL (80.0-100.0) Mean Corpuscular Hemoglobin 26.9 pg (28.0-32.0) Mean Corpuscular Hemoglobin Concent 33.0 g/dL (32.0-36.0) Red Cell Distribution Width 15.4 % (11.8-14.3) Platelet Count 263 10^3/uL (140-450) Mean Platelet Volume 8.8 fL (6.9-10.8) Neutrophils (%) (Auto) 59.1 % (37.0-80.0) Lymphocytes (%) (Auto) 25.2 % (10.0-50.0) Monocytes (%) (Auto) 9.7 % (0.0-12.0) Eosinophils (%) (Auto) 4.9 % (0.0-7.0) Basophils (%) (Auto) 1.1 % (0.0-2.0) Neutrophils # (Auto) 4.4 10 ^3/uL (1.6-8.6) Lymphocytes # (Auto) 1.9 10 ^3/uL (0.4-5.4) Monocytes # (Auto) 0.7 10 ^3/uL (0-1.3) Eosinophils # (Auto) 0.4 10 ^3/uL (0-0.8) Basophils # (Auto) 0.1 10 ^3/uL (0-0.2) Nucleated Red Blood Cells 0.0 % Sodium Level 141 mmol/L (136-145) Potassium Level 4.6 mmol/L (3.5-5.1) Chloride Level 108 mmol/L (98-107) Carbon Dioxide Level 31 mmol/L (20-31) Anion Gap 2 (5-15) Blood Urea Nitrogen 9 mg/dL (9-23) Creatinine 0.71 mg/dL (0.550-1.02) Glomerular Filtration Rate Calc 100 mL/min (>90) BUN/Creatinine Ratio 12.7 (10.0-20.0) Serum Glucose 87 mg/dL (74-106) Calcium Level 9.4 mg/dL (8.7-10.4) Phosphorus Level 3.3 mg/dL (2.4-5.1) Magnesium Level 2.2 mg/dL (1.6-2.6) Troponin I High Sensitivity 247 ng/L (</=34) Prothrombin Time 10.8 sec (9.3-11.8) Prothrombin Time INR 1.02 (0.9-1.15) Activated Partial Thromboplast Time 29.3 SEC (24.5-34.5) D-Dimer, Quantitative 0.28 mg/L FEU (0.0-0.49) Total Bilirubin 0.4 mg/dL (0.2-1.0) Aspartate Amino Transferase (AST) 12 U/L (13-40) Alanine Aminotransferase (ALT) 15 U/L (7-40) Alkaline Phosphatase 130 U/L (46-116) B-Type Natriuretic Peptide 20.08 pg/mL (0-100) Total Protein 6.8 g/dL (5.7-8.2) Albumin 4.2 g/dL (3.2-4.8) Triglycerides Level 112 mg/dL (< 150) Cholesterol Level 258 mg/dL (< 200) LDL Cholesterol 197 mg/dL (< 100) HDL Cholesterol 46 mg/dL (40-59) Thyroid Stimulating Hormone (TSH) 1.70 uIU/mL (0.55-4.78) Other Laboratory Tests 06/12/24 06:17 Brief Hx & Hospital Course: 54-year-old female admitted for chest pain, status post left heart catheterization, found to have stenosis on prox LAD status post DESIRAE and chronic occlusion on mid RCA with no intervention. Patient is seen by Cardiology, echo done, normal ejection fraction, patient will be discharged on aspirin and Plavix, to take metoprolol, lisinopril and isosorbide mononitrate. Patient to follow up in 1 week with discharge Clinic, follow up with PCP and Cardiology. Patient occasionally have chest pain while inpatient, however patient different than last time before they did the PCI. Patient also reported usually having this in relation to food instead of exercise. Patient will also be given pantoprazole and Maalox. Condition at Discharge: Good Final Diagnosis/Problems List Patient has chronic valve new occluded right coronary artery there hasgood collateral from the left system. 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 Giorgi recommend aggressive medical therapy for now Discharge Disposition: Home Discharge Instruct/Medications Diet: Cardiac 2g Na,low cholest Diet comment: heart healthy Activity: No Restrictions, As Tolerated Follow Up/Referral: follow up with cardiology and primary care discharge clinic in 1 week Medications: asa 81 daily plavix 75 daily metop succinate 25 daily lisinopril 2.5 daily ismo 10 twice daily 45 Discharge Statement: "Patient was advised to return to the ER or call 911 if any headaches, dizziness, shortness of breath, chest pain, abdominal pain, bleeding, fevers, or worsening of medical condition. Patient was counseled about treatment plan, medications, possible side effects, patientverbalized understanding. All questions were answered to the best of my ability. This discharge took greater then 30 minutes in planning, reviewing documentation, counseling the patient, and discussing with other team members." ASSESSMENT ASSESSMENT Assessment Acute NSTEMI Status post PCI on prox LAD Chronically occluded RCA not revascularized Smoker and recent liquid Slow transit constipation Insomnia Hyperlipidemia Sciatica Possible right hip osteoarthritis Likely GERD Date of Service: Jun 12, 2024 Billing Provider: CATHLEEN LYNCH MD Common Visit Codes: [id number]-TFT/OBS DISCH DAY >30min CATHLEEN LYNCH MD Jun 12, 2024 14:38
[2024-06-12 16:54] VITALS: BP 92/61; PULSE 63; RESP 18; TEMP 98.4; O2SAT 97
[2024-06-13] MEDS ORDERED: PANTOPRAZOLE 40 MG TAB PO SCH (06:00)
== END 2024-06-12 17:49 | disposition home or self-care (01) | DRG 174 ==
LOC: ER 09:26 → EDBD 09:26 → TELE 11:40 → TELE-CENTR 18:47
PROVIDERS: ADMIT Registered Nurse General Practice; ATTEND Student in an Organized Health Care Education/Training Program
PROC: 027034Z Dilation of Coronary Artery, One Artery with Drug-eluting Intraluminal Device, Percutaneous Approach (ICD-10-PCS; principal; 2024-06-11)
PROC: 4A023N7 Measurement of Cardiac Sampling and Pressure, Left Heart, Percutaneous Approach (ICD-10-PCS; 2024-06-11)
PROC: B211YZZ Fluoroscopy of Multiple Coronary Arteries using Other Contrast (ICD-10-PCS; 2024-06-11)
DX: I21.4 Non-ST elevation (NSTEMI) myocardial infarction (principal); I50.32 Chronic diastolic (congestive) heart failure; E66.9 Obesity, unspecified; I25.10 Atherosclerotic heart disease of native coronary artery without angina pectoris; E78.5 Hyperlipidemia, unspecified; K59.01 Slow transit constipation; G47.00 Insomnia, unspecified; K21.9 Gastro-esophageal reflux disease without esophagitis; Z87.891 Personal history of nicotine dependence; Z68.34 Body mass index [BMI] 34.0-34.9, adult; Z79.899 Other long term (current) drug therapy
CPT/HCPCS: 36415; 71046; 80048; 80053; 80061; 80307; 81001; 83735; 83880; 84100; 84443; 84484; 85025; 85379; 85610; 85730; 92941; 93005; 93306; 93458; 97163; 99152; C1887; G0378; J2250; J2405; Q9967

== ENCOUNTER 2024-06-20 10:03 | Emergency (ER) | payer MEDICAID ==
[~2024-06-20] VITALS: Ht 167.6 cm; Wt 92.0 kg
[~2024-06-20 10:03] MED LIST changes: +ALUMSUS16 PO; +ASPI-325 PO; +ATOR20TA50 PO; +CLOP75TA70 PO; +ISO20T PO; +LISI-275 PO; +MELA5TAB16 PO; +METO-6 PO; +POLY335015 PO
[2024-06-20 10:06] VITALS: BP 96/64; RESP 16; O2SAT 98
--- NOTE | 2024-06-20 10:33 | ED.PDOC ---
HPI Comments HPI: Poor Historian. 54-year-old female presents to emergency department for evaluation of left-sided chest pain. She was seated this morning and she rotated to the right and she felt a pop in her left chest with some pain. Pain is nonradiating. Patient has some associated shortness of breath with it. Patient stated that she had a cardiac stent two weeks ago here in our facility and was concerned that something may have happened to the stent. Patient states compliance with her medications. She does have history of hypotension sometimes. VITALS; TEMP; 98F HEART RATE; 71 02 SAT; 98 RR; 16 BP; 96/64 PMH: hypertension, hld, Acute NSTEMI Status post PCI on prox LAD Chronically occluded RCA not revascularized Smoker and recent liquid Slow transit constipation Insomnia Hyperlipidemia Sciatica Possible right hip osteoarthritis Likely GERD PSH: single drug-eluting stent placed 2 weeks prior SOCIAL HISTORY: ENDORSES tobacco use, DENIES etoh use, DENIES drug use MEDS; asa 81 daily plavix 75 daily metop succinate 25 daily lisinopril 2.5 daily ALLERGIES; NKDA REVIEW OF SYSTEMS: CONSTITUTIONAL: Denies acute: fever, diaphoresis, chills, generalized weakness. HEAD: Denies acute: headache, photophobia Eyes: Denies acute: Double vision, vision loss, eye pain, eye discharge. EARS: Denies acute: tinnitus, hearing loss, ear discharge, ear pain, THROAT: Denies acute: sore throat, swelling, difficulty swallowing , pain with swallowin g, change in voice. NECK: Denies acute: neck pain, neck swelling, stiff neck. HEART: Denies acute : , palpitations, LUNGS: Denies acute: wheezing, cough, hemoptysis ABDOMEN: Denies acute: abdominal pain, Nausea, Vomiting, diarrhea, melena , hematemesis, hematochezia SKIN: Denies acute: rash, redness, lesions, itchiness. EXTREMITIES: Denies acute: calf pain, numbness, tingling, weakness, denies pain in extremity. Denies acute: Low back pain. Neuro: Denies acute: focal neurological deficit, motor or sensory focal neurological deficit, tremors, seizure like activity, confusion, dizziness, change in mental status, loss of bowel or bladder function, cauda equina like symptoms. : Denies acute: dysuria, hematuria, flank pain, increase in urinary frequency. PSYCH: Denies acute: hallucination, suicidal ideation, homicidal ideation. FEMALE: Denies acute: abnormal vaginal bleeding, foul odor, unusual discharge. PHYSICAL EXAM: General: no acute distress, awake and alert. Head: normocephalic, atraumatic. Neck: supple, trachea is midline, no swelling. Throat: Normal phonation. Eyes:, no erythema, no purulent discharge, no proptosis, no icterus. Heart: regular rate, regular rhythm, no significant murmur appreciated. Lungs: no apparent respiratory distress, Able to speak in full sentences. No wheezing, no rhonchi, no crackles. No stridors Clear to auscultation bilaterally. Abdomen: non tender to palpation, non distended, soft, no guarding, no rebound, + bowel sounds. Neuro: Awake, Alert, oriented to name, self, situation, follows commands GCS=15. Speech is normal. Skin: no petechia, no purpura, no cyanosis, non-pale, not jaundice. Lower extremities: --no - Pitting edema no deformity, no focal swelling, no calf TTP. Makes eye contact. moves all four extremities. Face: no apparent facial droop. Ambulating in the ED independently. Chief Complaint: Chest Pain Time Seen by MD: 10:40 Primary Care Provider: JERAMY Reviewed Notes: Nurses Notes, Allergies Allergies: Coded Allergies: NO KNOWN ALLERGIES (Unverified , 06/10/24) Home Meds Active Scripts Polyethylene Glycol 3350 (Miralax) 17 Gm Pow, 17 GM PO BIDP PRN for 30 Days, #30 POW Prov:CATHLEEN LYNCH MD 06/12/24 Alum & Mag Hydrox-Simethicone (Maalox Multi Symptom Maxi) Symp Max Marli, 1 MAX PO BIDPRN PRN for 30 Days, #30 ML Prov:CATHLEEN LYNCH MD 06/12/24 Melatonin (Melatonin) 5 Mg Tab, 5 MG PO HS for 30 Days, #30 TAB Prov:CATHLEEN LYNCH MD 06/12/24 Lisinopril (Lisinopril) 5 Mg Tab, 2.5 MG PO DAILY for 30 Days, #15 TAB Prov:CATHLEEN LYNCH MD 06/12/24 Isosorbide Mononitrate (ISMO TABLET) 20 Mg Tb, 10 MG PO BID for 30 Days, #30 TAB Prov:CATHLEEN LYNCH MD 06/12/24 Clopidogrel Bisulfate (CLOPIDOGREL) 75 Mg Tab, 75 MG PO DAILY for 30 Days, #30 TAB Prov:CATHLEEN LYNCH MD 06/12/24 Atorvastatin Calcium (ATORVASTATIN CALCIUM) 20 Mg Tab, 40 MG PO HS for 30 Days, #60 TAB Prov:CATHLEEN LYNCH MD 06/12/24 Aspirin (Aspirin Low Dose) 81 Mg Tab, 81 MG PO DAILY for 30 Days, #30 TAB Prov:CATHLEEN LYNCH MD 06/12/24 Metoprolol Succinate (Toprol Xl) 50 Mg Tab, 25 MG PO DAILY for 30 Days, #15 TAB Prov:CATHLEEN LYNCH MD 06/12/24 Reported Medications Gabapentin (Gabapentin) 300 Mg Cap, 1 CAP PO DAILY for 30 Days, #30 06/11/24 Acetaminophen (Acetaminophen Extra Stren) 500 Mg Tab, 1 TAB PO Q6HR PRN for 30 Days, #120 06/11/24 Ergocalciferol (Vitamin D (Ergocalciferol) 50,000 Unit Cap, 1 CAP PO QWEEKLY for 56 Days, #8 06/11/24 Atorvastatin Calcium (Lipitor) 10 Mg Tab, 1 TAB PO DAILY for 90 Days, #90 06/11/24 Nicotine (Nicotine Transdermal Syst) 21 Mg/24 Hr Dis, 1 PATCH TD DAILY for 28 Days, #28 06/11/24 Tizanidine Hydrochloride (Tizanidine Hcl) 4 Mg Tab, 1 TAB PO TID for 30 Days, #90 06/11/24 Meloxicam (Meloxicam) 15 Mg Tab, 1 TAB PO DAILY for 30 Days, #30 06/11/24 Information Source: Patient Mode of Arrival: Ambulatory Brought in by: SELF Past Medical History PAST MEDICAL HISTORY: High Lipids, HTN Surgical History: PTCA CLINICAL SUPPORT ASSOCIATE History: Denies all CLINICAL SUPPORT ASSOCIATE Hx Family History Family History: Reviewed,noncontributory to illness Social History Smoker: Cigarettes Alcohol: Denies ETOH Use Drugs: Denies Drug Use Lives In: Home Was a procedure done? Was a procedure done?: No CP Differential Dx Differential Diagnosis: N/A Differential Diagnosis: Other (Ddx include but not limitied to gastritis, musculoskeletal pain, radiculopathy, atypical chest pain, dissection, aneurysm, ACS, unstable angina, hiatal hernia, GERD, anxiety, costochondritis, PE, pneumothroax, neoplasm, cardiac ischemia, drug abuse, anemia.) X-Ray, Labs, Meds, VS Vital Signs Date Time Temp Pulse Resp B/P (MAP) Pulse Ox O2 Delivery O2 Flow Rate FiO2 06/20/24 11:33 73 06/20/24 10:07 69 06/20/24 10:06 98.0 71 16 96/64 (75) 98 Lab Test 06/20/24 11:44 06/20/24 10:14 Range/Units Troponin I High Sensitivity 4 4 </=34 ng/L White Blood Count 6.6 4.4-10.8 10^3/uL Red Blood Count 4.67 4.0-5.20 10^6/uL Hemoglobin 12.6 12.2-16.2 g/dL Hematocrit 38.4 36.0-46.0 % Mean Corpuscular Volume 82.4 80.0-100.0 fL Mean Corpuscular Hemoglobin 27.0 L 28.0-32.0 pg Mean Corpuscular Hemoglobin Concent 32.8 32.0-36.0 g/dL Red Cell Distribution Width 14.9 H 11.8-14.3 % Platelet Count 305 140-450 10^3/uL Mean Platelet Volume 8.4 6.9-10.8 fL Neutrophils (%) (Auto) 54.2 37.0-80.0 % Lymphocytes (%) (Auto) 30.7 10.0-50.0 % Monocytes (%) (Auto) 9.2 0.0-12.0 % Eosinophils (%) (Auto) 4.7 0.0-7.0 % Basophils (%) (Auto) 1.2 0.0-2.0 % Neutrophils # (Auto) 3.6 1.6-8.6 10 ^3/uL Lymphocytes # (Auto) 2.0 0.4-5.4 10 ^3/uL Monocytes # (Auto) 0.6 0-1.3 10 ^3/uL Eosinophils # (Auto) 0.3 0-0.8 10 ^3/uL Basophils # (Auto) 0.1 0-0.2 10 ^3/uL Nucleated Red Blood Cells 0.0 % D-Dimer, Quantitative 0.39 0.0-0.49 mg/L FEU Sodium Level 141 136-145 mmol/L Potassium Level 4.6 3.5-5.1 mmol/L Chloride Level 105 98-107 mmol/L Carbon Dioxide Level 30 20-31 mmol/L Anion Gap 6 5-15 Blood Urea Nitrogen 8 L 9-23 mg/dL Creatinine 0.80 0.550-1.02 mg/dL Glomerular Filtration Rate Calc 86 >90 mL/min BUN/Creatinine Ratio 10.0 10.0-20.0 Serum Glucose 83 74-106 mg/dL Calcium Level 9.9 8.7-10.4 mg/dL Total Bilirubin 0.5 0.2-1.0 mg/dL Aspartate Amino Transferase (AST) 8 L 13-40 U/L Alanine Aminotransferase (ALT) 10 7-40 U/L Alkaline Phosphatase 163 H 46-116 U/L Total Protein 7.4 5.7-8.2 g/dL Albumin 4.4 3.2-4.8 g/dL [place] [id number] Ph: [phone] DIAGNOSTIC IMAGING Diagnostic Imaging Report : [id number] Signed PATIENT: RUFINA VALLE ACCT: [id number] UNIT: [id number] : 1970 LOC: ER ROOM / BED: / AGE / SEX: 54 / F ADM STATUS: REG ER SERVICE 1005 ORDERING PHYSICIAN: ABELINO MATTHEW MD PROCEDURE(s): CXRP - CHEST PORTABLE REASON: cp ORDER NUMBER(s): [id number], ACCESSION NUMBER(s): [id number] CHEST RADIOGRAPH Indication:cp Technique: Single frontal view of the chest was obtained Comparison: None FINDINGS: Lines and Tubes: None Lungs: No focal consolidation. Pleura: No effusion. No pneumothorax. Cardiomediastinal contours: Unremarkable Bones: No acute osseous abnormality. IMPRESSION: No acute cardiopulmonary disease. ATED BY: JENNIFER CARRASCO MD DICTATED DATE/TIME: 06/20/24 1044 SIGNED BY: JENNIFER CARRASCO MD SIGNED DATE/TIME: 06/20/24 104 CC: Time of 1ST Reevaluation: 14:37 Reevaluation 1ST: N/A Patient Education/Counseling: Diagnosis, Treatment Family Education/Counseling: No Family Present Comments Patient presented with the above HPI.--chest pain---workup was initiated. patient was found with the above mentioned diagnosis. Patient ED course and VS have been stabilized. Patient has been reassessed in the ED and remained in a stable condition. Patient has been observed in the ED adequate length of time to insure improvement/stability. Patient left against medical advice. We paged Cardiology earlier but have not heard back from them yet Dr. Storm All the reports of any imaging studies that were ordered by myself were reviewed by myself. Departure 1 Departure Time of Disposition: 14:36 Impression: Primary Impression: Chest pain Additional Impression: Left against medical advice Disposition: 07 LEFT AGAINST MEDICAL ADVICE Condition: Guarded Additional Instructions: I was notified that the patient left against medical advice. Discharged With: Self Critical Care Note Critical Care Time?: No Heart Score Heart Score: Heart Score Response (Comments) Value History Slightly Suspicious 0 EKG Normal 0 Age 45-64 1 Risk Factors 1 or 2 risk factors 1 Troponin Normal limit 0 Total 2 I personally scribed for FAUSTO WALLACE DO ([email or web address]) on 06/20/24 at 10:33. Electronically submitted by Fernando Hamilton ([email or web address]). I personally scribed for FAUSTO WALLACE DO ([email or web address]) on 06/20/24 at 10:41. Electronically submitted by Fernando Hamilton (Mismi). I personally scribed for FAUSTO WALLACE DO ([email or web address]) on 06/20/24 at 10:56. Electronically submitted by Fernando Hamilton (Mismi). I personally scribed for FAUSTO WALLACE DO ([email or web address]) on 06/20/24 at 11:41. Electronically submitted by Fernando Hamilton (Mismi). FAUSTO WALLACE DO Jun 20, 2024 10:33
[2024-06-20 10:43] LABS: Basophils # (auto) 0.1 10 ^3/uL (0-0.2); Basophils % (auto) 1.2 % (0.0-2.0); Eosinophils # (auto) 0.3 10 ^3/uL (0-0.8); Eosinophils % (auto) 4.7 % (0.0-7.0); Hematocrit 38.4 % (36.0-46.0); Hemoglobin 12.6 g/dL (12.2-16.2); Lymphocytes % (auto) 30.7 % (10.0-50.0); Mean Corpuscular Hgb Conc. 32.8 g/dL (32.0-36.0); Mean Corpuscular Volume 82.4 fL (80.0-100.0); Monocytes # (auto) 0.6 10 ^3/uL (0-1.3); Monocytes % (auto) 9.2 % (0.0-12.0); Neutrophils # (auto) 3.6 10 ^3/uL (1.6-8.6); Neutrophils % (auto) 54.2 % (37.0-80.0); Platelet Count (auto) 305 10^3/uL (140-450); Red Blood Cells 4.67 10^6/uL (4.0-5.20); Red Cell Distribution Width 14.9 % (11.8-14.3); White Blood Cell 6.6 10^3/uL (4.4-10.8)
--- NOTE | 2024-06-20 10:46 | DVH ---
CHEST RADIOGRAPH Indication:cp Technique: Single frontal view of the chest was obtained Comparison: None FINDINGS: Lines and Tubes: None Lungs: No focal consolidation. Pleura: No effusion. No pneumothorax. Cardiomediastinal contours: Unremarkable Bones: No acute osseous abnormality. IMPRESSION: No acute cardiopulmonary disease.
[2024-06-20 10:57] LABS: Alanine Aminotransferase 10 U/L (7-40); Albumin 4.4 g/dL (3.2-4.8); Alkaline Phosphatase 163 U/L (46-116); Anion Gap 6 (5-15); Aspartate Aminotransferase 8 U/L (13-40); Bilirubin, Total 0.5 mg/dL (0.2-1.0); Blood Urea Nitrogen 8 mg/dL (9-23); Calcium 9.9 mg/dL (8.7-10.4); Carbon Dioxide 30 mmol/L (20-31); Chloride 105 mmol/L (98-107); Glucose 83 mg/dL (74-106); Potassium 4.6 mmol/L (3.5-5.1); Sodium 141 mmol/L (136-145); Total Protein 7.4 g/dL (5.7-8.2)
[2024-06-20 11:33] VITALS: PULSE 73
--- NOTE | 2024-06-20 19:05 | ECG ---
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
--- NOTE | 2024-06-21 06:27 | ECG ---
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
== END 2024-06-20 12:47 | disposition left against medical advice (07) ==
LOC: ER 10:03
DX: R07.89 Other chest pain (principal); E78.5 Hyperlipidemia, unspecified; F17.210 Nicotine dependence, cigarettes, uncomplicated; I11.9 Hypertensive heart disease without heart failure; I25.2 Old myocardial infarction; Z79.02 Long term (current) use of antithrombotics/antiplatelets; Z79.82 Long term (current) use of aspirin; Z79.899 Other long term (current) drug therapy; Z95.5 Presence of coronary angioplasty implant and graft
CPT/HCPCS: 36415; 71045; 80053; 84484; 85025; 85379; 93005

== ENCOUNTER → 2024-07-24 | Outpatient (CLI) | payer MEDICAID ==
[2024-07-24 09:31] LABS: Basophils # (auto) 0 10 ^3/uL (0-0.2); Basophils % (auto) 0.5 % (0.0-2.0); Eosinophils # (auto) 0.4 10 ^3/uL (0-0.8); Eosinophils % (auto) 6.8 % (0.0-7.0); Hematocrit 40.2 % (36.0-46.0); Hemoglobin 13.2 g/dL (12.2-16.2); Lymphocytes # (auto) 1.9 10 ^3/uL (0.4-5.4); Lymphocytes % (auto) 29.9 % (10.0-50.0); Monocytes # (auto) 0.6 10 ^3/uL (0-1.3); Neutrophils # (auto) 3.4 10 ^3/uL (1.6-8.6); Neutrophils % (auto) 52.8 % (37.0-80.0); Nucleated Red Blood Cells % 0.1 %; Platelet Count (auto) 304 10^3/uL (140-450); Red Blood Cells 4.89 10^6/uL (4.0-5.20); Red Cell Distribution Width 14.4 % (11.8-14.3); White Blood Cell 6.5 10^3/uL (4.4-10.8)
[2024-07-24 10:01] LABS: Alanine Aminotransferase 14 U/L (7-40); Albumin 4.4 g/dL (3.2-4.8); Anion Gap 4 (5-15); Aspartate Aminotransferase 14 U/L (13-40); BUN/Creatinine Ratio 14.7 (10.0-20.0); Blood Urea Nitrogen 11 mg/dL (9-23); Chloride 104 mmol/L (98-107); Creatine Kinase IFCC 62 U/L (34-145); Glucose 89 mg/dL (74-106); HDL Cholesterol 52 mg/dL (40-59); Sodium 139 mmol/L (136-145); Triglycerides 119 mg/dL (< 150)
[2024-07-24 10:02] LABS: Bilirubin, Total 0.3 mg/dL (0.2-1.0); Total Protein 7.4 g/dL (5.7-8.2)
[2024-07-24 10:08] LABS: Alkaline Phosphatase 137 U/L (46-116); Carbon Dioxide 31 mmol/L (20-31); Cholesterol 218 mg/dL (< 200); LDL Cholesterol 147 mg/dL (< 100)
== END | disposition home or self-care (01) ==
LOC: LAB 09:10
PROVIDERS: ATTEND Internal Medicine
DX: K59.00 Constipation, unspecified (principal); E55.9 Vitamin D deficiency, unspecified
CPT/HCPCS: 36415; 80053; 80061; 82550; 84439; 84443; 85025

== ENCOUNTER 2025-03-05 09:17 | Outpatient (CLI) | payer MEDICAID ==
[2025-03-05 10:15] LABS: Alanine Aminotransferase 16 U/L (7-40); Albumin 4.3 g/dL (3.2-4.8); Alkaline Phosphatase 111 U/L (46-116); Anion Gap 6 (5-15); BUN/Creatinine Ratio 12.5 (10.0-20.0); Blood Urea Nitrogen 10 mg/dL (9-23); Calcium 9.8 mg/dL (8.7-10.4); Carbon Dioxide 30 mmol/L (20-31); Chloride 105 mmol/L (98-107); Glucose 91 mg/dL (74-106); HDL Cholesterol 46 mg/dL (40-59); Potassium 4.0 mmol/L (3.5-5.1); Sodium 141 mmol/L (136-145); Total Protein 6.8 g/dL (5.7-8.2); Triglycerides 87 mg/dL (< 150)
[2025-03-05 10:16] LABS: Bilirubin, Total 0.3 mg/dL (0.2-1.0); Cholesterol 220 mg/dL (< 200)
[2025-03-05 11:14] LABS: Hepatitis A Total Antibody Negative (Negative); Hepatitis B Surface Antigen Negative (Negative); Hepatitis C Antibody Negative (Negative)
== END 2025-03-05 17:00 | disposition home or self-care (01) ==
LOC: LAB 09:17
PROVIDERS: ATTEND Licensed Practical Nurse
DX: I10 Essential (primary) hypertension (principal); E78.2 Mixed hyperlipidemia; Z13.6 Encounter for screening for cardiovascular disorders; Z13.1 Encounter for screening for diabetes mellitus; E55.9 Vitamin D deficiency, unspecified; Z13.29 Encounter for screening for other suspected endocrine disorder
CPT/HCPCS: 36415; 80053; 80061; 82043; 82306; 82607; 83036; 84443; 86704; 86706; 86708; 86803; 87340